=== PATIENT | female | born 1995 | race Hispanic/Latino ===

== ENCOUNTER 2020-06-12 01:37 | Emergency (ER) | payer BC, OTHER ==
[2020-06-12] MEDS ORDERED: Albuterol Sulfate 2.5 mg/3 ml Neb ONE (02:18)
[2020-06-12 04:02] LABS: #Lymphocytes 0.9 thou/uL (1.20-3.40); #Monocytes 0.6 thou/uL (0.11-0.59); #Neutrophils 11.8 thou/uL (1.40-6.50); %Basophils 0.1 % (0.0-1.0); %Eosinophils 0.1 % (0.0-10.0); %Lymphocytes 6.4 % (21.0-51.0); %Monocytes 4.2 % (0.0-10.0); %Neutrophils 89.3 % (42.0-75.0); Hemoglobin 13.5 g/dL (12.0-16.0); Mean Corpuscular HGB CONC 33.1 g/dL (32.0-36.0); Mean Corpuscular Hemoglobin 29.7 pg (27.0-31.0); Mean Corpuscular Volume 89.8 fL (78.0-98.0); Mean Platelet Volume 7.8 fL (7.4-10.4); Platelet Count 241 thou/uL (130-400); RBC Distribution Width 11.7 % (11.5-14.5); Red Blood Cell (RBC) Count 4.55 mill/uL (4.20-5.40); White Blood Cell (WBC) Count 13.2 thou/uL (4.8-10.8)
[2020-06-12 04:46] LABS: ALT (SGPT) 18 U/L (8-55); AST (SGOT) 25 U/L (5-34); Albumin 4.2 g/dL (3.5-5.0); Alkaline Phosphatase 50 U/L (40-110); Anion Gap 16 mmol/L (10-20); BUN (Urea Nitrogen) 15 mg/dL (7.0-18.7); Bilirubin, Total Less than 0.2 mg/dL (0.2-1.2); Calc. Creatinine Clearance 0 mL/min (70-130); Calcium 8.8 mg/dL (7.8-10.44); Carbon Dioxide 18 mmol/L (22-29); Chloride 107 mmol/L (98-107); Globulin 3.6 g/dL (2.4-3.5); Glucose 141 mg/dL (70-105); Potassium 3.5 mmol/L (3.5-5.1); Protein, Total 7.8 g/dL (6.0-8.3); Sodium 137 mmol/L (136-145)
== END 2020-06-12 04:15 | disposition home or self-care (01) ==
LOC: ERS 01:37
DX: J45.901 Unspecified asthma with (acute) exacerbation (principal); Z79.51 Long term (current) use of inhaled steroids
CPT/HCPCS: 36415; 71045; 80053; 84484; 85025; 93005; 94640; J7611

== ENCOUNTER 2021-06-24 22:32 | Emergency (ER) | payer BC ==
[2021-06-24] MEDS ORDERED: predniSONE 20 MG TAB ONE (23:21)
[2021-06-24] MEDS ORDERED: Albuterol Sulfate 1.25 MG/3 ML NEB ONE (23:51)
[2021-06-24] MEDS ORDERED: Albuterol Sulfate 2.5 mg/3 ml Neb ONE (23:53)
== END 2021-06-25 00:43 | disposition home or self-care (01) ==
LOC: ERS 22:32
DX: J45.901 Unspecified asthma with (acute) exacerbation (principal)
CPT/HCPCS: J7512; J7611; J7620